=== PATIENT | female | born 1950 | race Caucasian/White ===

== ENCOUNTER → 2016-06-22 | Outpatient (CLI) | payer OTHER ==
--- NOTE | 2016-06-22 10:02 | MA ---
Screening Digital Mammogram With iCAD Analysis Clinical Indications: Routine screening. A sister was diagnosed with breast cancer in her 40s. The p atient has a personal history of left breast cancer treated with lumpectomy. She has also had a benig n right breast biopsy. Technique: Standard cephalocaudal and mediolateral oblique projections were obtained. A skin marker i s placed on left breast lumpectomy scar. This examination was processed by the iCAD computer aided de tection system. Comparison: June 2015, May 2014, May 2013, May 2012, May 2011, May 2010, Dece mber 2008. Breast density: Type B; Scattered fibroglandular densities. Findings: CAD was reviewed. Asymmetry at the left breast lumpectomy site is stable. No masses, suspi cious calcifications or other signs of malignancy are identified. There has been no significant khoury ge in the appearance of either breast. Impression: Benign post lumpectomy mammography, BI-RADS 2. Recommendation: Routine mammographic screening in one year as long as physical examination is negativ [facility] will send a result letter to the patient. Negative mammography should not preclude additional workup of a clinically suspicious finding. The patient's information is entered into a reminder system with a target due date for her next mammo gram.
== END ==
LOC: CIMAGING 07:25
PROVIDERS: ATTEND Internal Medicine Hematology & Oncology
DX: Z12.31 Encounter for screening mammogram for malignant neoplasm of breast (principal); Z80.3 Family history of malignant neoplasm of breast; Z85.3 Personal history of malignant neoplasm of breast
CPT/HCPCS: G0202

== ENCOUNTER → 2017-06-28 | Outpatient (CLI) | payer OTHER | LOC: CIMAGING 07:16 | PROVIDERS: ATTEND Internal Medicine | DX: Z12.31 Encounter for screening mammogram for malignant neoplasm of breast (principal); Z85.3 Personal history of malignant neoplasm of breast ==

== ENCOUNTER → 2018-07-11 | Outpatient (CLI) | payer OTHER | LOC: CIMAGING 07:56 | PROVIDERS: ATTEND Internal Medicine | DX: Z12.31 Encounter for screening mammogram for malignant neoplasm of breast (principal); Z80.3 Family history of malignant neoplasm of breast ==